=== PATIENT | female | born 1970 | race Caucasian/White ===

== ENCOUNTER 2017-05-19 05:58 | Emergency (ER) | payer OTHER ==
[~2017-05-19] VITALS: Ht 157.5 cm; Wt 71.6 kg
[~2017-05-19 05:58] MED LIST: DARV PO; DOXY100T PO; FIORIC PO; Z.0.NO CURRENT MEDS; ZOFR4TAB3 PO
[2017-05-19 06:04] VITALS: BP 159/84; PULSE 109; RESP 16; TEMP 98.6; O2SAT 98
[2017-05-19] MEDS ORDERED: IBUP-1129 (06:13)
[2017-05-19] MEDS ORDERED: TYLE325T PO (06:13)
[2017-05-19] MEDS ORDERED: KETOROLAC TROMETHAMINE 30 MG/ML (IVP) VIAL IV PUSH ONE (06:30)
[2017-05-19] MEDS ORDERED: IBUP1TAB7 PO (06:37)
[2017-05-19] MEDS ORDERED: ROBA750T PO (06:37)
--- NOTE | 2017-05-19 06:38 | PD ---
HPI Chief Complaint: Musculoskeletal Complaint Time Seen by Provider: 06:16 Travel History International Travel<30 days: No Contact w/Intl Traveler<30days: No Traveled to known affect area: No History of Present Illness HPI 46-year-old female presents to the emergency department for complaint of left scapular pain. Patient states the pain started suddenly last evening. Patient reports started at rest and was not doing any activity precipitate an injury to the posterior left shoulder scapular area. Patient states that pain was sudden onset at rest and describes pain as severe. Initially she noted some tingling into the digits of the left hand but this resolved quickly. Patient denies any known injury. Patient has not done any new exercise regimen, massage, for chiropractic manipulation to the upper back or neck area. Patient took a one- time dose of ibuprofen with relief. Patient states pain returned and took a dose of acetaminophen at 2 AM with minimal relief. Due to persistent pain decided to come to the emergency room for evaluation. Patient denies any neck pain but does note that the discomfort in her left scapular area and a mild headache. Headache is not sudden onset thunderclap or worst ever. No visual disturbance no change in mentation no neck pain. Patient has had persistent cough over the last 24 hours. Patient rates pain 7-8/10 intensity. Patient does not typically have extremity pain or muscle skeletal pain. Patient has history of anemia. Patient denies history of high blood pressure heart disease diabetes tobaccoism asthma musculoskeletal pain connective tissue disease or autoimmune disorder. Due to persistent pain of waxing and waning intensity presents now. Patient does not have any current left upper extremity numbness tingling or weakness. Patient is right-handed. No lower extremity symptoms. No chest pain and no referred neck jaw mid scapular or abdominal pain. Patient reports no shortness of breath. Patient has had cough times one day that has been nonproductive. No fever or chills. Patient is unable to identify exacerbating or alleviating factors. [facility] Past Medical History Narrative Medical Anemia anxiety chest pain UTI headache tubal ligation and no tobacco use and no alcohol use no substance use: Nursing notes reviewed Anemia: Yes Asthma: No Blood Disorders: No Anxiety: Yes Cancer: No Cardiovascular Problems: Yes Chemotherapy: No Chest Pain: Yes COPD: No Diminished Hearing: No Endocrine: No Genitourinary: Yes (FREQUENT UTI) Headaches: Yes Immune Disorder: No Musculoskeletal: Yes Neurologic: Yes Psychiatric: Yes Respiratory: Yes Immunizations Current: Yes Radiation Therapy: No ?: Not : 4 Para: 4 Tubal Ligation: Yes Past Surgical History AICD: No Section: Yes (X4) Gynecologic Surgery: Yes (4 c-sections) Joint Replacement: No Pacemaker: No Other Surgery: Yes Social History Alcohol Use: No Tobacco Use: No Substance Use: No Allergies-Medications (Allergen,Severity, Reaction): Coded Allergies: No Known Allergies (Verified , 05/30/15) Reported Meds & Prescriptions Reported Meds & Active Scripts Active Ibuprofen 800 Mg Tab 800 Mg PO Q8H PRN Robaxin (Methocarbamol) 750 Mg Tab 750 Mg PO Q6HR Reported Motrin Ib (Ibuprofen) 200 Mg Tablet Tylenol (Acetaminophen) 325 Mg Tab 650 Mg PO Q6H PRN Review of Systems Except as stated in HPI: all other systems reviewed are Neg General / Constitutional: No: Fever, Chills HENT: No: Congestion Cardiovascular: No: Chest Pain or Discomfort Respiratory: No: Shortness of Breath Gastrointestinal: No: Nausea, Vomiting, Abdominal Pain Genitourinary: No: Flank Pain Musculoskeletal: Positive: Pain (left scapular PAIN) Neurologic: No: Weakness, Dizziness, Syncope, Focal Abnormalities, Coordination Problem Psychiatric: No: Anxiety Hematologic/Lymphatic: No: Lymph Node Enlargement Physical Exam Narrative GENERAL: Well-developed well-nourished female in no acute distress no respiratory distress SKIN: Warm and dry. HEAD: Normocephalic. EYES: No scleral icterus. No injection or drainage. NECK: Supple, trachea midline. No JVD or lymphadenopathy. CARDIOVASCULAR: Regular rate and rhythm without murmurs, gallops, or rubs. RESPIRATORY: Breath sounds equal bilaterally. No accessory muscle use. GASTROINTESTINAL: Abdomen soft, non-tender, nondistended. MUSCULOSKELETAL: No cyanosis, or edema. BACK: Nontender without obvious deformity. Palpation along the medial edge of the left scapula and palpating laterally over the scapula small 1 cm x 1 cm area of soft tissue tenderness that reproduces pain of presentation causing patient to yell out and discomfort. Intact range of motion of the left upper extremity with shoulder abduction and abduction and internal/external rotation extension and flexion as well as distal left upper extremity is neurovascular tendon intact. No CVA tenderness. Data Data Last Documented VS Vital Signs Date Time Temp Pulse Resp B/P (MAP) Pulse Ox O2 Delivery O2 Flow Rate FiO2 05/19/17 06:04 98.6 109 16 159/84 (109) 98 Orders Orders Chest, Pa & Lat (05/19/17 ) Ketorolac Inj (Toradol Inj) (05/19/17 06:30) Ed Discharge Order (05/19/17 06:39) Ondansetron Inj (Zofran Inj) (05/19/17 07:00) MDM Medical Decision Making Medical Screen Exam Complete: Yes Emergency Medical Condition: Yes Medical Record Reviewed: Yes Interpretation(s) Last Impressions Chest X-Ray 05/19/17 0000 Signed Impressions: Service Date/Time: Friday, May 19, 2017 06:24 - CONCLUSION: No acute disease. Klever Silva MD Differential Diagnosis Musculoskeletal pain, trigger point injury, tendinitis, also to consider dissection, atypical chest pain, ACS, PE, pneumonia Narrative Course Patient has specific isolated area of reproducible pain along the medial edge of the left scapula reproduces the pain of presentation with direct palpation and pain is lessened by removing direct point pressure from the site. Patient given Toradol 30 mg IV. Patient with recent cough concerned about pneumonia chest x-ray ordered. Diagnosis Primary Impression: Trigger point of left shoulder region Referrals: Primary Care Physician as needed Patient Instructions: General Instructions Additional Instructions: Apply moist heat intermittently to left scapular area May take ibuprofen as prescribed May use muscle relaxant as prescribed as needed Follow-up with primary care provider Return to emergency for any concerns or change in condition Scripts Ibuprofen (Ibuprofen) 800 Mg Tab 800 MG PO Q8H Y for PAIN GREATER THAN 5, #12 TAB 0 Refills Prov: Emily Small MD 05/19/17 Methocarbamol (Robaxin) 750 Mg Tab 750 MG PO Q6HR for Muscle Spasm, #12 TAB 0 Refills Prov: Emily Small MD 05/19/17 Disposition: 01 DISCHARGE HOME Condition: Stable Emily Small MD May 19, 2017 06:38
--- NOTE | 2017-05-19 06:42 | RADRPT ---
EXAM DATE/TIME: 05/19/2017 06:24 [facility] COMPARISON: No previous studies available for comparison. INDICATIONS : Cough and left shoulder pain with arm numbness. MEDICAL HISTORY : None. SURGICAL HISTORY : None. ENCOUNTER: Initial ACUITY: 1 day PAIN SCORE: 6/10 LOCATION: Bilateral chest FINDINGS: PA and lateral views of the chest demonstrate the lungs to be symmetrically aerated without evidence of mass, infiltrate or effusion. The cardiomediastinal contours are unremarkable. Osseous structure s are intact. CONCLUSION: No acute disease. Klever Silva MD on May 19, 2017 at 6:39 Board Certified Radiologist. This report was verified electronically.
[2017-05-19 06:54] VITALS: BP 140/83; PULSE 92; RESP 16; O2SAT 98
[2017-05-19] MEDS ORDERED: ONDANSETRON HCL 4 MG/2 ML VIAL IV PUSH ONE (07:00)
== END 2017-05-19 07:08 | disposition home or self-care (01) ==
LOC: PHED 05:58
DX: M79.1 Myalgia (principal); M25.512 Pain in left shoulder
CPT/HCPCS: 71046; 96374; 96375; 99284; J1885; J2405